=== PATIENT | female | born 1945 | race Caucasian/White ===

== ENCOUNTER 2020-10-31 19:13 | Emergency (ER) | payer MEDICARE, SELFPAY ==
[2020-10-31 19:23] VITALS: BP 119/43; PULSE 88; RESP 16; TEMP 36.7; O2SAT 96
--- NOTE | 2020-10-31 20:42 | ED.FEMALEGU ---
HPI - Female Genitourinary General Chief complaint: Vaginal Bleeding Stated complaint: vaginal bleeding Time Seen by Provider: 10/31/20 19:15 History of Present Illness HPI Narrative: Patient is a 75-year-old female who presents ER with vaginal bleeding. Patient takes Eliquis. Ongoing for last 2 days. Reports she has had dark blood that goes into her depends. No dizziness or loss of consciousness. Denies overt hemorrhage. No trauma. Has had history of this in the past. She has a vaginal cream she is supposed to apply but she does not know what the name of it is. She does not use it regularly only when she starts to have some bleeding. Usually bleeds about once a months. She has a dry press operator in [place] that she has not seen in a year. Patient started on blood thinner 6 months ago after having a CVA. No vaginal discharge or other concerns. Related Data Home Medications Medication Instructions Recorded Confirmed amlodipine 10/31/20 10/31/20 apixaban [Eliquis] mg 10/31/20 ezetimibe mg 10/31/20 hydrochlorothiazide 10/31/20 metoprolol tartrate 10/31/20 Allergies Allergy/AdvReac Type Severity Reaction Status Date / Time No Known Allergies Allergy Verified 10/31/20 19:27 Review of Systems Review of Systems: All systems reviewed & are unremarkable except as noted in HPI and below Constitutional: Constitutional: Denies chills and Denies fatigue Gastrointestinal: Gastrointestinal: Denies abdominal pain, Denies nausea and Denies vomiting Genitourinary: Genitourinary: Reports abnormal vaginal bleeding, Denies nocturia, Denies dysuria and Denies vaginal discharge Neurologic: Denies syncope PMFSH Past Medical History Medical History (Updated 10/31/20 @ 20:47 by Benjy Sotomayor MD) CVA (cerebral vascular accident) Hypertension Surgical History Surgical History (Updated 10/31/20 @ 20:45 by Benjy Sotomayor MD) No pertinent past surgical history Social History Social History (Updated 10/31/20 @ 20:45 by Benjy Sotomayor MD) Smoking status: Current every day smoker Gender identity (if verbalized by the patient): Female Exam Narrative: Exam Narrative: GENERAL: Well-appearing, well-nourished, and in no acute distress. HEAD: Normocephalic, atraumatic. CHEST: Clear to auscultation. No respiratory distress. HEART: Regular rate and rhythm. Normal peripheral pulses. ABDOMEN: Soft, nontender, nondistended. : Normal external genitalia with some dried blood. Atrophy of the vaginal canal and unable to tolerate speculum exam. No hemorrhage. EXTREMITIES: Normal range of motion. No edema. NEURO: Alert and oriented x3. PSYCH: Normal mood and affect. Course Course Emergency Course: Blood on exam. No active hemorrhage that is of concern. Recommend follow-up with dry press operator for further evaluation. Patient verbalized understanding. Vital Signs Vital signs: Vital Signs Temperature 98.1 F 10/31/20 19:23 Pulse Rate 88 10/31/20 19:23 Respiratory Rate 16 10/31/20 19:23 Blood Pressure 119/43 L 10/31/20 19:23 Pulse Oximetry 96 10/31/20 19:23 Temperature 98.1 F 10/31/20 19:23 Pulse Rate 88 10/31/20 19:23 Respiratory Rate 16 10/31/20 19:23 Blood Pressure 119/43 L 10/31/20 19:23 Pulse Oximetry 96 10/31/20 19:23 Discharge Plan Discharge Clinical Impression: Vaginal bleeding Patient Disposition: Home, Self-Care Condition: Stable Instructions: Abnormal (Dysfunctional) Uterine Bleeding (ED) Additional Instructions: Your vaginal bleeding could be from something is benign is atrophy of your vagina related to the low estrogen, or something more concerning such as endometrial cancer. Follow-up with your dry press operator for further treatment evaluation. Return to the ER if you lose consciousness, you have severe uncontrolled bleeding or you have bleeding for 1 full pad an hour for 3 continuous hours, or you have additional concerns. Prescriptions: No Action amlodip
[2020-10-31 21:05] VITALS: BP 128/64; PULSE 82; RESP 17; O2SAT 97
== END 2020-10-31 21:05 | disposition home or self-care (01) ==
PROVIDERS: Emergency Provider Emergency Medicine; PCP Physician Assistant
DX: N93.9 Abnormal uterine and vaginal bleeding, unspecified (principal); I10 Essential (primary) hypertension; F17.210 Nicotine dependence, cigarettes, uncomplicated
CPT/HCPCS: 99284